=== PATIENT | female | born 1990 | race Caucasian/White ===

== ENCOUNTER 2024-10-11 13:28 | Emergency (ER) | payer OTHER, BC, SELFPAY ==
[2024-10-11 13:41] VITALS: BP 119/85
--- NOTE | 2024-10-11 15:24 | ED.GENMED ---
History of Present Illness
General
Chief Complaint: Skin Problem
Source: patient
Exam Limitations: none
Time Seen by Provider: 10/11/24 14:25
Nursing documentation reviewed up to this point in time: agreed with
History of Present Illness
History of Present Illness:
33-year-old female presenting to the emergency department today with anxiety and swelling beneath the left armpit has been ongoing over the past few weeks seem to get better up until a week ago after taking naproxen for a few days. Worsening over
the past 7 days. No systemic symptoms fevers nausea vomiting. No trouble swallowing or breathing. No abdominal pain
Review of Systems
Review of Systems
Allergies reviewed?: Yes
All Other Systems: ROS reviewed and negative except as documented in HPI and ROS
Phy Exam
Physical Exam
Physical Exam:
GENERAL: Alert , in no apparent distress
EYE: pupils equal and reactive
NECK: Supple, no significant adenopathy.
ENT: o/p clr, mmm.
CARDIAC: Regular rate and rhythm .
LUNGS: Clear breath sounds bilaterally, no acute respiratory distress, no wheezes/rales/rhonchi
ABDOMEN: Soft, without focal tenderness, no r/g, no cvat
NEUROLOGICAL: Alert and oriented, no focal neuro deficits
SKIN: Right armpit with 2.5 cm abscess fluctuant indurated tender to palpation no active drainage warm and dry, skin intact.
MUSCULOSKELETAL: No edema, well perfused.
PSYCH: Normal and appropriate interaction.
Course
Orders/Labs/Results
Orders:
Orders
10/11/24 15:23
Doxycycline [Vibramycin] 100 mg PO NOW STA
Vital Signs
Initial and Last Documented VS:
Initial Vital Signs
Temp Pulse Resp BP Pulse Ox
97.9 F 78 16 119/85 100
10/11/24 13:41 10/11/24 13:41 10/11/24 13:41 10/11/24 13:41 10/11/24 13:41
Last Documented Vital Signs
Temp Pulse Resp BP Pulse Ox
97.9 F 78 16 119/85 100
10/11/24 13:41 10/11/24 13:41 10/11/24 13:41 10/11/24 13:41 10/11/24 13:41
Procedures
Incision/Drainage/Joint Aspiration
Right axilla:
Anethesia: 1% Lidocaine with Epi
Preparation: cleaned with alcohol wipe
Type of procedure: incise and drain
Nature of site: abscess
Description of abscess: less than 3cm
Loculations broken up: Yes
How much fluid was obtained?: large amount
Fluid description: purulent
Treatment: left open for drainage
MDM/Problems Addressed
MDM/Problems Addressed:
33-year-old female presenting to the emergency department with concerns of worsening swelling of the right armpit over the past week. Patient has an abscess this was incised and drained. Moderate amount of purulent drainage. Patient started on
doxycycline otherwise stable for outpatient management. Return precautions given.
*Critical Care Note
Total Time (30-74mins, 75-104mins- exclusive of procedures): Not Applicable
ED Attending Note
-
Portions of this chart may have been created with voice recognition software.� Occasional wrong word or��sound alike� substitutions may have occurred due to the inherent limitations of voice recognition software.
Discharge Plan
Departure
Patient Disposition: Home (Routine Discharge)
Date of Disposition: 10/11/24
Time of Disposition: 15:34
Patient with high blood pressure during this ER visit?: No
Condition: Good
Covid-19: Not Applicable
Discharge Problem:
Abscess of axilla, right
Instructions: Skin Abscess
Prescriptions:
New
doxycycline hyclate 100 mg tablet
100 mg PO BID 5 Days Qty: 10 0RF
mupirocin 2 % ointment
1 applic topical BID Qty: 22 0RF
Activity Restrictions/Additional Instructions:
You came to the emergency department today with concerns of an abscess to your right armpit. This was drained here please use warm compresses. Please also take doxycycline twice daily for the next 5 days to reduce risk of recurrence. Please also
use mupirocin. Please also use chlorhexidine body wash once daily for the next week. Return to the emergency department any worsening, new or concerning symptoms. Otherwise please follow-up closely as an outpatient with the primary care doctor
the next few days for reassessment to ensure this is improving properly.
Interventions
Interventions:
*General Assessment Last Done: 10/11/24 14:28
*Neglect/Abuse Screening Last Done: 10/11/24 14:28
*ED COVID-19 Vaccine History Last Done: 10/11/24 14:28
ED-Skin Assessment Last Done: 10/11/24 14:28
Discharge Date and Time
Print Language: SLOVAK
[2024-10-11] MEDS: VIBRAMYCIN 100 MG PO (15:39)
[2024-10-11 15:42] VITALS: BP 120/82
== END 2024-10-11 15:49 | disposition home or self-care (01) ==
LOC: EMR 13:28
PROVIDERS: EMERGENCY PHYSICIAN Emergency Medicine
DX: L02.411 Cutaneous abscess of right axilla (principal)
CPT/HCPCS: 99283; 10060